=== PATIENT | male | born 1995 | race Caucasian/White ===

== ENCOUNTER 2018-03-17 11:39 | Emergency (ER) | payer BC, SELFPAY ==
[2018-03-17] MEDS ORDERED: Acetaminophen 325 MG TAB ONE (12:19)
[2018-03-17] MEDS ORDERED: Lidocaine 2% PF 5 ML VIAL ONE ×2 (12:19→12:22)
[2018-03-17] MEDS ORDERED: Lidocaine 1% PF 5 ML VIAL ONE (12:22)
[2018-03-17] MEDS ORDERED: Bacitracin Zinc 1 Packet ONE (14:17)
[2018-03-17] MEDS ORDERED: Sulfameth/Trimethoprim DS 800-160mg TAB ONE (14:17)
== END 2018-03-17 14:42 | disposition home or self-care (01) ==
LOC: ERS 11:39
DX: S71.111A Laceration without foreign body, right thigh, initial encounter (principal); V19.9XXA Pedal cyclist (driver) (passenger) injured in unspecified traffic accident, initial encounter; Y93.55 Activity, bike riding
CPT/HCPCS: 12004; J2001